=== PATIENT | female | born 1970 | race Caucasian/White ===

== ENCOUNTER 2024-10-16 19:12 | Emergency (ER) | payer BC, OTHER ==
[2024-10-16] MEDS: Ketorolac 30 MG/ML SDV IVPUSH ONE (20:07)
[2024-10-16] MEDS: Ondansetron 4 MG/2 ML SDV IVPUSH PRN (20:08)
[2024-10-16] MEDS: Sodium Chloride 0.9% 1,000 ML IV SCH (20:10)
[2024-10-16] MEDS ORDERED: Naloxone 0.4 MG/ML SDV IVPUSH PRN (21:33)
[2024-10-16] MEDS: fentaNYL 50 MCG/ML SDV IVPUSH ONE ×2 (21:38→22:29)
[2024-10-16] MEDS: Take Home: oxyCODONE HCl 5 MG Tab, 5 Tab Pack PO ONE (22:40)
[2024-10-16] MEDS: Take Home: Cyclobenzaprine 10 MG Tab, 4 Tab Pack PO PRN (22:41)
[2024-10-16] MEDS: Take Home: Ondansetron 4 MG Tab.DIS, 5 Tab Pack PO PRN (22:41)
[2024-10-16 23:01] VITALS: BP 98/65; PULSE 65
== END 2024-10-16 22:40 | disposition home or self-care (01) ==
LOC: LL.ED 19:12
DX: S06.0X0A Concussion without loss of consciousness, initial encounter (principal); Z88.5 Allergy status to narcotic agent; Z88.8 Allergy status to other drugs, medicaments and biological substances; Z79.899 Other long term (current) drug therapy; X58.XXXA Exposure to other specified factors, initial encounter; Y99.0 Civilian activity done for income or pay; Y92.89 Other specified places as the place of occurrence of the external cause
CPT/HCPCS: 70450; 72125; 96361; 96374; 96375; 96376; 99284; A9270; J1885; J2405; J3010; J3360; J7030; Q0162